=== PATIENT | female | born 1960 | race African-American/Black ===

== ENCOUNTER 2017-12-12 15:52 | Emergency (ER) | payer OTHER ==
[~2017-12-12] VITALS: Ht 157.5 cm; Wt 72.6 kg
[~2017-12-12 15:52] MED LIST: APAP500 PO; ASPIR 8181 MG PO; BACTRIM DS TAB1 EACH PO; COLACE100 MG PO; CYCLOBENZAPRINE10 MG PO; FISH OIL 1,001000 M2 PO; FLEXERIL PO; HYDRALAZINE 2525 M1 PO; HYDROCHLOROTHIA25 M1 PO; HYDROCODONE-AP1 EAC6 PO; IBUPROFEN 600600 M1 PO; LISINOPRIL40 MG PO; LOPRESSOR25 PO; MEDROL DOSPAK21 TAB PO; NAPROSYN500 MG PO; NORCO 5-325 TA1 EACH PO; PEPCID20 MG PO; PERCOCET 5-3251 EACH PO; POTASSIUM20; PREDNISONE 20 M20 MG PO; VITAMIN E400 UNI2 PO
[2017-12-12] MEDS ORDERED: MOBIC15 MG PO (18:45)
[2017-12-12] MEDS ORDERED: IBUPROFEN 800800 M1 PO (19:02)
[2017-12-12 19:07] VITALS: BP 132/84
== END 2017-12-12 19:09 | disposition home or self-care (01) ==
LOC: ER 15:52
DX: S16.1XXA Strain of muscle, fascia and tendon at neck level, initial encounter (principal); S39.012A Strain of muscle, fascia and tendon of lower back, initial encounter; I10 Essential (primary) hypertension; K21.9 Gastro-esophageal reflux disease without esophagitis; J45.909 Unspecified asthma, uncomplicated; Z90.49 Acquired absence of other specified parts of digestive tract; F10.99 Alcohol use, unspecified with unspecified alcohol-induced disorder; Z88.6 Allergy status to analgesic agent; V89.2XXA Person injured in unspecified motor-vehicle accident, traffic, initial encounter; Y93.89 Activity, other specified; Y92.89 Other specified places as the place of occurrence of the external cause; Y99.8 Other external cause status

== ENCOUNTER → 2018-02-10 | Outpatient (CLI) | payer OTHER ==
[~2018-02-10] MED LIST changes: +IBUPROFEN 800800 M1 PO; +MOBIC15 MG PO
== END ==
LOC: RAD 08:55
DX: Z12.31 Encounter for screening mammogram for malignant neoplasm of breast (principal)

== ENCOUNTER → 2019-04-05 | Outpatient (CLI) | payer OTHER | LOC: RAD 04-04 03:57 | DX: Z12.31 Encounter for screening mammogram for malignant neoplasm of breast (principal) ==

== ENCOUNTER 2019-05-31 17:21 | Emergency (ER) | payer OTHER ==
[~2019-05-31] VITALS: Ht 157.5 cm; Wt 68.0 kg
[2019-05-31 17:21] VITALS: BP 150/77
[2019-05-31] MEDS ORDERED: PEPCID40 MG PO (18:45)
[2019-05-31] MEDS ORDERED: PREDNISONE 20 M20 MG PO (18:45)
[2019-05-31] MEDS ORDERED: TRIAMCINOLONE A80 G2 TOP (18:45)
== END 2019-05-31 18:54 | disposition home or self-care (01) ==
LOC: ER 17:21
DX: L30.9 Dermatitis, unspecified (principal); T78.49XA Other allergy, initial encounter; I10 Essential (primary) hypertension; K21.9 Gastro-esophageal reflux disease without esophagitis; J45.909 Unspecified asthma, uncomplicated; E11.9 Type 2 diabetes mellitus without complications; Z88.5 Allergy status to narcotic agent; Z90.49 Acquired absence of other specified parts of digestive tract

== ENCOUNTER 2019-12-17 18:52 | Emergency (ER) | payer BC ==
[~2019-12-17] VITALS: Ht 157.5 cm; Wt 66.7 kg
[~2019-12-17 18:52] MED LIST changes: +PEPCID40 MG PO; +TRIAMCINOLONE A80 G2 TOP
[2019-12-17] MEDS ORDERED: TESSALON PERLE100 MG PO (19:43)
[2019-12-17] MEDS ORDERED: DOXYCYCLINE 10100 M2 PO (19:43)
[2019-12-17 20:10] VITALS: BP 134/75
== END 2019-12-17 20:00 | disposition home or self-care (01) ==
LOC: ER 18:52
DX: R05 Cough (principal); R51 Headache; J02.9 Acute pharyngitis, unspecified; I10 Essential (primary) hypertension; K21.9 Gastro-esophageal reflux disease without esophagitis; J45.909 Unspecified asthma, uncomplicated; E11.9 Type 2 diabetes mellitus without complications; F17.210 Nicotine dependence, cigarettes, uncomplicated; Z79.899 Other long term (current) drug therapy; Z79.82 Long term (current) use of aspirin

== ENCOUNTER 2021-08-14 12:57 | Emergency (ER) | payer OTHER ==
[~2021-08-14] VITALS: Ht 157.5 cm; Wt 52.2 kg
[~2021-08-14 12:57] MED LIST changes: +DOXYCYCLINE 10100 M2 PO; +TESSALON PERLE100 MG PO
[2021-08-14 13:24] VITALS: BP 157/94
[2021-08-14] MEDS ORDERED: GLUMETZA1000 PO (13:48)
[2021-08-14] MEDS ORDERED: VALSARTAN-HCTZ1 EAC4 PO (13:48)
== END 2021-08-14 14:12 | disposition home or self-care (01) ==
LOC: ER 12:57
DX: I10 Essential (primary) hypertension (principal); Z76.0 Encounter for issue of repeat prescription; J45.909 Unspecified asthma, uncomplicated; F17.210 Nicotine dependence, cigarettes, uncomplicated; E11.9 Type 2 diabetes mellitus without complications; Z79.1 Long term (current) use of non-steroidal anti-inflammatories (NSAID); Z79.891 Long term (current) use of opiate analgesic; Z79.899 Other long term (current) drug therapy; Z88.6 Allergy status to analgesic agent